=== PATIENT | female | born 2000 | race Caucasian/White ===

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

== ENCOUNTER 2020-09-09 04:48 | Emergency (ER) | payer SELFPAY ==
[~2020-09-09] VITALS: Ht 162.6 cm; Wt 46.3 kg
[~2020-09-09 04:48] MED LIST changes: +CEPH-264 PO; +DICY10CA3 PO; +ONDA4TAB12 PO
[2020-09-09 04:50] VITALS: BP 103/81
[2020-09-09] MEDS ORDERED: LIDOCAINE 1% Multi-Dose 20 ML VIAL. ONE (04:59)
--- NOTE | 2020-09-09 05:14 | PHYS DOC ---
Past Medical History Past Medical History: No Pertinent History Past Surgical History: Other Additional Past Surgical Histo: left axila surgery Smoking Status: Never Smoker Alcohol Use: None Drug Use: None General Adult EDM: Chief Complaint: LACERATION/AVULSION HPI: HPI: Patient is a 20 year old male presents for evaluation of laceration to the left cheek. Patient states she was walking with her marijuana bong slipped fell lacerating her left cheek. Laceration is approximately 6 cm in length. Patient denies any other injuries. Patient is intoxicated. Patient's tetanus is not up-to-date. Review of Systems: Review of Systems: Constitutional: Denies fever or chills. [] Eyes: Denies change in visual acuity. [] HENT: Denies nasal congestion or sore throat. [] Respiratory: Denies cough or shortness of breath. [] Cardiovascular: Denies chest pain or edema. [] GI: Denies abdominal pain, nausea, vomiting, bloody stools or diarrhea. [] : Denies dysuria. [] Musculoskeletal: Denies back pain or joint pain. [] Integument: Denies rash. [Positive laceration] Neurologic: Denies headache, focal weakness or sensory changes. [Positive intoxication] Endocrine: Denies polyuria or polydipsia. [] Lymphatic: Denies swollen glands. [] Psychiatric: Denies depression or anxiety. [] Heart Score: Risk Factors: Risk Factors: DM, Current or recent (<one month) smoker, HTN, HLP, family history of CAD, obesity. Risk Scores: Score 0 - 3: 2.5% MACE over next 6 weeks - Discharge Home Score 4 - 6: 20.3% MACE over next 6 weeks - Admit for Clinical Observation Score 7 - 10: 72.7% MACE over next 6 weeks - Early Invasive Strategies Current Medications: Current Medications Medications (Trade) Dose Ordered Sig/Hosea Start Time Stop Time Status Last Admin Dose Admin Lidocaine HCl (Lidocaine 1% 20ml Vial) 20 ml STK-MED ONCE 09/09/20 04:59 09/09/20 04:59 DC Allergies: Allergies: Allergies Coded Allergies Type Severity Reaction Last Updated Verified No Known Drug Allergies 09/17/16 No Physical Exam: PE: Constitutional: Well developed, well nourished, no acute distress, non-toxic appearance. [] HENT: Normocephalic, atraumatic, bilateral external ears normal, oropharynx moist, no oral exudates, nose normal. [] Eyes: PERRLA, EOMI, conjunctiva normal, no discharge. [] Neck: Normal range of motion, no tenderness, supple, no stridor. [] Cardiovascular:Heart rate regular rhythm, no murmur [] Lungs & Thorax: Bilateral breath sounds clear to auscultation [] Abdomen: Bowel sounds normal, soft, no tenderness, no masses, no pulsatile m asses. [] Skin: Warm, dry, no erythema, no rash. [6 cm laceration left cheek] Back: No tenderness, no CVA tenderness. [] Extremities: No tenderness, no cyanosis, no clubbing, ROM intact, no edema. [] Neurologic: Alert and oriented X 3, normal motor function, normal sensory function, no focal deficits noted. [Ambulates with a steady gait alcohol on breath, clinically sober] Psychologic: Affect normal, judgement normal, mood normal. [] EKG: EKG: [] Radiology/Procedures: Radiology/Procedures: [] Course & Med Decision Making: Course & Med Decision Making Pertinent Labs and Imaging studies reviewed. (See chart for details) [] Wound was cleaned to a bloodless field. Wound explored no foreign bodies identified. Anesthesia was achieved with 1% lidocaine approximately 5 cc. 8 six-point 0 nylon simple interrupted sutures placed no complications. Dragon Disclaimer: Dragon Disclaimer: This electronic medical record was generated, in whole or in part, using a voice recognition dictation system. Departure Departure Impression: Primary Impression: Laceration Additional Impression: Intoxication Disposition: 01 DC HOME SELF CARE/HOMELESS Condition: STABLE Referrals: BONNIE NAVARRO MD (PCP) Patient Instructions: Alcohol Intoxication, Facial Laceration Additional Instructions: Sutures out in 5 days CRISTELA TUTTLE DO Sep 09, 2020 05:14
[2020-09-09] MEDS ORDERED: DIPH,PERTUSS(ACELL),TET VAC/PF 0.5 ML SYRINGE. VAX IM ONE (06:00)
== END 2020-09-09 05:30 | disposition home or self-care (01) ==
LOC: ER 04:48
DX: S01.412A Laceration without foreign body of left cheek and temporomandibular area, initial encounter (principal); W01.0XXA Fall on same level from slipping, tripping and stumbling without subsequent striking against object, initial encounter; Y93.89 Activity, other specified; Y92.89 Other specified places as the place of occurrence of the external cause; Y99.8 Other external cause status
CPT/HCPCS: 12014; 90471; 90715; 99283

== ENCOUNTER 2020-09-15 18:13 | Emergency (ER) | payer SELFPAY ==
[~2020-09-15] VITALS: Ht 162.6 cm; Wt 46.8 kg
[2020-09-15 19:51] VITALS: BP 134/63
--- NOTE | 2020-09-15 20:22 | PHYS DOC ---
Past Medical History Past Medical History: No Pertinent History Past Surgical History: Other Additional Past Surgical Histo: left axila surgery, STICHES TO LEFT SIDE OF FACE/CHEEK Smoking Status: Current Every Day Smoker Alcohol Use: Occasionally Drug Use: None General Adult EDM: Chief Complaint: SUTURE/STAPLE REMOVAL HPI: HPI: Patient is a 20 year old female presented to emergency department was seen here on 09 September 2020 and had eight 9 interrupted sutures placed in a laceration on the left side of her face. Patient is here for suture removal today. Review of Systems: Review of Systems: 14 body systems of review of systems have been reviewed. See HPI for pertinent positives and negative responses, otherwise all other systems are negative, nonpertinent or noncontributory. Heart Score: Risk Factors: Risk Factors: DM, Current or recent (<one month) smoker, HTN, HLP, family history of CAD, obesity. Risk Scores: Score 0 - 3: 2.5% MACE over next 6 weeks - Discharge Home Score 4 - 6: 20.3% MACE over next 6 weeks - Admit for Clinical Observation Score 7 - 10: 72.7% MACE over next 6 weeks - Early Invasive Strategies Allergies: Allergies: Allergies Coded Allergies Type Severity Reaction Last Updated Verified No Known Drug Allergies 09/17/16 No Physical Exam: PE: Constitutional: Well developed, well nourished, no acute distress, non-toxic appearance. [] HENT: Normocephalic, atraumatic, bilateral external ears normal, oropharynx moist, no oral exudates, nose normal. No lymphadenopathy appreciated of the head and neck. Eyes: PERRLA, EOMI, conjunctiva normal, no discharge. [] Neck: Normal range of motion, no tenderness, supple, no stridor. [] Cardiovascular:Heart rate regular rhythm, no murmur [] Lungs & Thorax: Bilateral breath sounds clear to auscultation [] Abdomen: Bowel sounds normal, soft, no tenderness, no masses, no pulsatile ma sses. [] Skin: Warm, dry, no erythema, no rash. 7 interrupted sutures to left side of face intact, patient states that 1 suture came out while she was waiting to be seen today in the ER. Redness around suture site, no purulent drainage noted. Contusion to left side of face. Back: No tenderness, no CVA tenderness. [] Extremities: No tenderness, no cyanosis, no clubbing, ROM intact, no edema. [] Neurologic: Alert and oriented X 3, normal motor function, normal sensory function, no focal deficits noted. [] Psychologic: Affect normal, judgement normal, mood normal. [] Current Patient Data: Vital Signs: Vital Signs Date Time Temp Pulse Resp B/P (MAP) Pulse Ox O2 Delivery O2 Flow Rate FiO2 09/15/20 19:51 98.6 93 20 134/63 (86) 96 Room Air 98.6 EKG: EKG: [] Radiology/Procedures: Radiology/Procedures: [] Course & Med Decision Making: Course & Med Decision Making Pertinent Labs and Imaging studies reviewed. (See chart for details) 20-year-old female reports emergency department today for suture removal. Theresa ent had sutures placed 5 days ago here in the emergency department after falling on a water pipe which broke on the left side of her face and lacerated her face. Previous ED provider placed 8 interrupted sutures discharged home. Patient was seen yesterday and had lymphadenopathy noted, patient was started on antibiotics and sent home for 1 more day. Patient returned today and had only 1 of 8 sutures remaining, patient was holding on her hand. The other 7 sutures were removed without incident. Patient gave verbal understanding of discharge home instructions, will remain taking her prescribed antibiotics as was started yesterday. Patient had no further questions or concerns and was discharged home without incident. Impression: #1 encounter for suture removal. Christina Disclaimer: Christina Disclaimer: This electronic medical record was generated, in whole or in part, using a voice recognition dictation system. Departure Departure Impression: Primary Impression: Visit for suture removal Disposition: 01 DC HOME SELF CARE/HOMELESS Condition: GOOD Referrals: NO PCP (PCP) Patient Instructions: Suture Removal Additional Instructions: Continue taking your antibiotics until complete. Return emergency department for worsening symptoms or other concerns. QASIM BEVERLY APRN Sep 15, 2020 20:22
== END 2020-09-15 20:15 | disposition home or self-care (01) ==
LOC: ER 18:13
DX: S01.81XD Laceration without foreign body of other part of head, subsequent encounter (principal); F17.200 Nicotine dependence, unspecified, uncomplicated; Z98.890 Other specified postprocedural states; X58.XXXD Exposure to other specified factors, subsequent encounter
CPT/HCPCS: 99282